=== PATIENT | female | born 1975 | race American Indian/Alaskan Native ===

== ENCOUNTER 2017-04-23 13:15 | Emergency (ER) | payer BC, MEDICAID ==
[2017-04-23 13:15] VITALS: BMI 47.2
[2017-04-23 13:48] VITALS: BP 133/90; PULSE 104; TEMP 100.4; O2SAT 100
[2017-04-23] MEDS ORDERED: guaiFENesin DM 100 mg-10 mg/5 ml UD PO STA (14:25)
--- NOTE | 2017-04-23 14:25 | C.PDOC ---
History Of Present Illness 42 y/o female presents to the ER complaining of fever, chills, cough, and body aches which have been present since yesterday. She was seen by her PCP last week for sinus infection. She was prescribed abx and she completed the course. Patient is taking Nyquil for nighttime relief.Patient states that her temperature was 101F yesterday. She denies having sore throat, vomiting, diarrhea, and pelvic pain. Time Seen by Provider: 04/23/17 14:10 Chief Complaint (Nursing): Cough, Cold, Congestion History Per: Patient History/Exam Limitations: no limitations Current Symptoms Are (Timing): Still Present Associated Symptoms: Fever, Chills, Cough Severity: Moderate Past Medical History Reviewed: Historical Data, Nursing Documentation, Vital Signs Vital Signs: Last Vital Signs Temp 100.4 F H 04/23/17 13:43 Pulse 104 H 04/23/17 13:43 Resp BP 133/90 04/23/17 13:43 Pulse Ox 100 04/23/17 14:47 - Medical History PMH: Diabetes Denies: Depression, HTN (DENIES), Chronic Kidney Disease Surgical History: Appendectomy - [facility] BILAT ENDOS OCC TUBE NEC (02/03/02) D & C NEC (02/03/02) INJECT/INFUSE ELECTROLYT (09/01/12) INJECT/INFUSE NEC (05/01/13) MANUAL ASSIST DELIV NEC (12/30/01) OTHER APPENDECTOMY (06/16/99) Family History: States: No Known Family Hx - Social History Hx Tobacco Use: No Hx Alcohol Use: No Hx Substance Use: No - Immunization History Hx Influenza Vaccination: No Hx Pneumococcal Vaccination: No Review Of Systems Except As Marked, All Systems Reviewed And Found Negative. Constitutional: Positive for: Fever, Chills, Malaise ENT: Negative for: Throat Pain Respiratory: Positive for: Cough Gastrointestinal: Negative for: Nausea, Vomiting, Diarrhea Genitourinary: Negative for: Pelvic Pain Physical Exam - Physical Exam Appears: Non-toxic, No Acute Distress Skin: Normal Color, Warm Head: Atraumatic, Normacephalic Eye(s): bilateral: Normal Inspection Ear(s): Bilateral: TM Erythema Nose: Normal Oral Mucosa: Moist Throat: Normal, No Erythema, No Exudate Neck: Supple Chest: Symmetrical Cardiovascular: Rhythm Regular Respiratory: Normal Breath Sounds, No Accessory Muscle Use, No Rales, No Rhonchi , No Wheezing Gastrointestinal/Abdominal: Normal Exam, Soft, No Tenderness Extremity: Normal ROM Neurological/Psych: Oriented x3, Normal Speech, Normal Motor, Normal Sensation ED Course And Treatment O2 Sat by Pulse Oximetry: 100 (RA) Pulse Ox Interpretation: Normal Medical Decision Making Medical Decision Making: prob viral bronchitis/syncrome/influenza Disposition Doctor Will See Patient In The: Office Counseled Patient/Family Regarding: Studies Performed, Diagnosis - Disposition Referrals: Светлана Napoles DO [[facility]] - Disposition: HOME/ ROUTINE Disposition Time: 14:24 Condition: GOOD Additional Instructions: continue Tamiflu 75 mg twice daily for 5 days Dayquil/Nyquil as needed for symptoms follow-up with your PMD as needed. Prescriptions: Oseltamivir [Tamiflu] 75 mg PO BID #9 cap Instructions: Influenza (ED) Forms: [facility] (Bhutanese), Work Excuse - Clinical Impression Clinical Impression: Influenza-like illness - Scribe Statement The provider has reviewed the documentation as recorded by the Elif Bonilla Provider Attestation: All medical record entries made by the Elizabethibe were at my direction and personally dictated by me. I have reviewed the chart and agree that the record accurately reflects my personal performance of the history, physical exam, medical decision making, and the department course for this patient. I have also personally directed, reviewed, and agree with the discharge instructions and disposition.
[2017-04-23] MEDS ORDERED: guaiFENesin DM 100 mg-10 mg/5 ml UD ONE (14:35)
== END 2017-04-23 14:51 | disposition home or self-care (01) ==
LOC: C.ER 13:15
DX: J11.1 Influenza due to unidentified influenza virus with other respiratory manifestations (principal)